=== PATIENT | female | born 1995 | race Native Hawaiian/Other Pacific Islander ===

== ENCOUNTER 2016-10-25 23:39 | Emergency (ER) | payer OTHER ==
[2016-10-25 23:45] VITALS: BP 108/74; PULSE 106; RESP 16; O2SAT 99
--- NOTE | 2016-10-26 01:05 | ED.REPORT ---
HPI-Fever Date of Service Oct 26, 2016 ED Provider: Dante Taylor DO 20-year-old female currently 38 weeks complaining of fever 1 day. Patient states she has not taken her temperature at home. She endorses fever and chills. She does not endorse other sick contacts at home denies nausea vomiting denies diarrhea endorses a headache with a nonproductive cough 2 days. She has been seen at [facility] and return to emergency department for additional evaluation. Patient a-febrile in room in no apparent distress. Flu swab negative. Nursing Notes Stated Complaint: FEVER/ Chief Complaint: General Complaint Nursing Notes Reviewed: Yes Allergies: Coded Allergies: No Known Allergies (Unverified , 10/25/16) General Time Seen by MD: 00:38 Chief Complaint Recent fever, Cough, non-productive Hx Obtained From: Patient Arrived By: Walk-in Onset Occurred: 1 day ago Review of Systems Constitutional: Reports: Fever, Denies: Chills Ears / Nose / Throat: Denies: Ear drainage bilateral, Nasal congestion, Sinus problem, Sore throat, Throat swelling Respiratory: Reports: Non-productive cough, Denies: Shortness of breath, Wheezing Cardiovascular: Denies: Chest pain GI: Denies: Abdominal pain, Constipation, Diarrhea, Mucousy stool, Nausea, Vomiting Female: Denies: Dysuria, Hematuria, Pelvic pain, Vaginal bleeding - abnl Neurologic: Denies: Abnormal movement, Change LOC, Dizziness, Focal weakness, Headache, Numbness, Spinning sensation, Vision change, Weakness Physical Exam Initial Vital Signs Vital Signs (First) Date Time Temp Pulse Resp B/P Pulse Ox O2 Delivery O2 Flow Rate FiO2 10/25/16 23:45 36.8 106 16 108/74 99 Head / Eyes: Atraumatic, Normocephalic, PERRL ENT: Mucous membranes moist, Conjunctiva normal, No scleral icterus Abdomen / GI: Soft (38 weeks ), Non-tender Back: No CVA tenderness Extremities: Neuro intact Psychiatric: Mood/affect normal General/Constitutional: Awake, Alert, No acute distress Respiratory / Chest: Atraumatic, Breath sounds NL, Breath sounds = bilat, No respiratory distress, No rhonchi, No wheezing, No stridor Cardiovascular: Heart rate NL, Regular rhythm, No murmurs Head / Eyes: Atraumatic, PERRL, EOMI, No photophobia ENT: Atraumatic, Airway patent, Mucous membranes moist, Tympanic membs NL, Ext aud canal NL, Nose exam NL, No sinus tenderness, No facial swelling, Gums/ dentition NL Mouth: Positive: Mucous membranes dry Interpretation & Diagnostics Lab Results Interpretation Result Diagram: 10/26/16 0116 10/26/16 0116 Test 10/26/16 01:16 10/26/16 01:25 White Blood Count 7.2th/mm3 (3.8-10.1) Red Blood Count 3.90mil/mm3 (3.90-5.20) Hemoglobin 10.9g/dL (12.0-15.6) Hematocrit 33.9% (35.0-46.0) Mean Corpuscular Volume 86.9fL (81-100) Mean Corpuscular Hemoglobin 27.9pg (27.0-35.0) Mean Corpuscular Hemoglobin Concent 32.2% (32.0-37.0) Red Cell Distribution Width 12.6% (12.3-15.4) Platelet Count 283bil/L (150-400) Neutrophils (%) (Auto) 61.3% (40-74) Lymphocytes (%) (Auto) 27.4% (14-46) Monocytes (%) (Auto) 9.6% (4-12) Eosinophils (%) (Auto) 1.0% (0-5) Basophils (%) (Auto) 0.1% (0-3) Sodium Level 139mEq/L (134-144) Potassium Level 4.2mEq/L (3.5-5.2) Chloride Level 102mEq/L (97-108) Carbon Dioxide Level 22mmol/L (18-29) Blood Urea Nitrogen 7mg/dL (6-20) Creatinine 0.40mg/dL (0.57-1.00) Estimat Glomerular Filtration Rate 289mL/min (>59) Glucose Level 80mg/dL (60-99) Calcium Level 8.8mg/dL (8.5-10.1) Total Bilirubin 0.3mg/dL (0.0-1.2) Aspartate Amino Transf (AST/SGOT) 13U/L (0-50) Alanine Aminotransferase (ALT/SGPT) 6U/L (0-32) Alkaline Phosphatase 147U/L (25-150) Total Protein 6.9g/dL (6.4-8.4) Albumin 3.2g/dL (3.4-5.0) Procalcitonin < 0.05ng/mL (See Comment) Hold Wheeler Top Tube Received (Received) Urine Color Yellow (YELLOW) Urine Appearance Cloudy (CLEAR,HAZY) Urine pH 6.5 (5.0-8.0) Urine Specific Ackerly 1.020 (1.003-1.035) Urine Protein Negativemg/dL (NEG,TRACE) Urine Glucose (UA) Negativemg/dL (NEGATIVE) Urine Ketones Negativemg/dL (NEGATIVE) Urine Occult Blood Negative (NEGATIVE) Urine Nitrite Negative (NEGATIVE) Urine Bilirubin Negative (NEGATIVE) Urine Urobilinogen Normalmg/dL (NORMAL) Urine Leukocyte Esterase Moderate (NEGATIVE) Urine RBC 0-2/hpf (0-2) Urine WBC 6-10/hpf (0-5) Urine Epithelial Cells Moderate/hpf (NONE-MOD) Urine Crystals None seen (NONE SEEN) Urine Bacteria Moderate/hpf (NONE-FEW) Urine Hyaline Casts None/lpf (NONE) Urine Granular Casts None seen (NONE SEEN) Urine Waxy Casts None seen (NONE SEEN) Urine Red Blood Cell Casts None seen (NONE SEEN) Urine White Blood Cell Casts None seen (NONE SEEN) Urine Mucus Present (None Seen) Urine Trichomonas None seen (NONE SEEN) Urine Yeast None (NONE SEEN) Urinalysis Comment None Urine Culture Reflexed Indicated Hold Urine Received (Received) Re-Eval/Medical Decision Med Decision/Clinical Course Patient was seen in [facility] and cleared prior to emergency department admission, flu swab negative. CBC CMP unremarkable. UA shows bacteria however it is contaminated with epithelial cells. Will hold off on abx pending urine culture. Patient was entirely asymptomatic during her ED visit, afebrile and physical exam was unremarkable. Patient instructed she may take OTC Tylenol and follow-up with her primary care provider as needed. Counseled Regarding: Diagnosis, Lab results, Need for follow-up, When/why to return to ED Discharge & Departure Shift Change Sign-Out Response to Therapy: Improved Impression: Primary Impression: Fever and chills Disposition: Home Discharge Condition All VS Reviewed: Yes Condition: Stable Additional Instructions: Blood work obtained showed no sign of infection, urinalysis is being cultured. The flu swab obtained was also negative If you find that you have a return of fevers, please do remember to take her temperature. If her temperature is above 100.4 you may take [id number] Tylenol as instructed on the packaging. Please do not exceed 3 g (3000 mg) of this medication in any 24-hour period. If you do have return of the fevers that does not respond to Tylenol he develop severe headaches nausea and vomiting dizziness visual changes chest pain shortness of breath abdominal pain please return to the ED for additional evaluation. Referrals: Karina Cedeno MD (PCP) Attending Statement I personally took a history performed a physical examination. No signs of sepsis on exam. Very benign physical examination. Labor and delivery as already seen and evaluated her. Her urine dip was negative. Our urinalysis today shows moderate bacteria but it is contaminated with a large number of epithelial cells. She is not having any dysuria, urinary frequency or flank pain. We will culture her urine sample because most likely this represents skin contaminants. Close follow-up is recommended. GRUPO TYLER DO Oct 26, 2016 01:05 Dante Taylor DO Oct 26, 2016 18:17
[2016-10-26 01:40] LABS: BASOPHILS % (AUTO) 0.1 % (0-3); MONOCYTES % (AUTO) 9.6 % (4-12); Mean Corpuscular Hemoglobin 27.9 pg (27.0-35.0); Mean Corpuscular Volume 86.9 fL (81-100); NEUTROPHILS % (AUTO) 61.3 % (40-74); Platelet Count 283 bil/L (150-400)
[2016-10-26 02:55] LABS: APPEARANCE,URINE CLOUDY (CLEAR,HAZY); COLOR,URINE YELLOW (YELLOW); PH,URINE 6.5 (5.0-8.0)
[2016-10-26 02:56] LABS: OCCULT BLOOD,URINE NEGATIVE (NEGATIVE); UROBILINOGEN,URINE NORMAL (NORMAL)
[2016-10-26 03:05] VITALS: BP 102/71; PULSE 192; RESP 18; O2SAT 99
== END 2016-10-26 03:07 | disposition home or self-care (01) ==
LOC: SED 23:39
DX: O26.893 Other specified pregnancy related conditions, third trimester (principal); R50.9 Fever, unspecified; R51 Headache; R05 Cough; Z3A.38 38 weeks gestation of pregnancy

== ENCOUNTER 2016-11-13 13:36 | Inpatient (IN) | payer OTHER ==
[~2016-11-13] VITALS: Ht 152.4 cm; Wt 72.1 kg
[2016-11-13] MEDS ORDERED: Methylergonovine 0.2 mg/mL Inj IM PRN ×2 (16:50→19:35)
[2016-11-13] MEDS ORDERED: Lactated Ringer's 1,000 ML IV PRN (16:50)
[2016-11-13] MEDS ORDERED: Hemorrhage Kit, Post Partum XX ONE ×2 (16:50→19:35)
[2016-11-13] MEDS ORDERED: Oxytocin 10 Unit/mL Inj IM PRN ×2 (16:50→19:35)
[2016-11-13] MEDS ORDERED: Oxytocin 30 Units/500 mL LR 30 UNITS in IV Premix 1 EACH IV PRN ×2 (16:50→19:35)
[2016-11-13] MEDS ORDERED: Carboprost 250 mCg/mL Inj IM PRN ×2 (16:50→19:35)
[2016-11-13] MEDS ORDERED: Sodium Chloride LOK Flush 10 mL Syringe IVFLUSH PRN (16:50)
[2016-11-13] MEDS ORDERED: Ondansetron 2 mg/mL 2 mL Inj IVPUSH PRN (16:50)
[2016-11-13 17:50] LABS: Mean Corpuscular Hemoglobin 27.7 pg (27.0-35.0); Mean Corpuscular Volume 86.4 fL (81-100)
[2016-11-13] MEDS ORDERED: Lactated Ringer's 1,000 ML IV SCH ×2 (17:58→19:31)
[2016-11-13] MEDS ORDERED: Lactated Ringer's 500 ML IV ONE (17:58)
[2016-11-13] MEDS ORDERED: fentaNYL 2 mCg/mL-Bupiv 0.125% 100 ML EPIDURAL SCH (18:00)
[2016-11-13] MEDS ORDERED: Atropine 1 mg/10 mL (Code) Syringe IVPUSH PRN (18:00)
[2016-11-13] MEDS ORDERED: EPHEDrine Sulfate 50 mg/mL Inj IVPUSH PRN (18:00)
[2016-11-13] MEDS ORDERED: Benzocaine (Dermoplast) 20% 60 Gm Spray TOPICAL PRN (19:35)
[2016-11-13] MEDS ORDERED: Measles-Mumps-Rubella Vaccine 0.5 mL Inj SUBQ ONE (19:35)
[2016-11-13] MEDS ORDERED: LANOlin HPA 7 Gm Ointment TOPICAL PRN (19:35)
[2016-11-13] MEDS ORDERED: Witch Hazel-Glycerin Pads TOPICAL PRN (19:35)
--- NOTE | 2016-11-13 22:23 | HP ---
[address] [address] HISTORY AND PHYSICAL PATIENT: CHASTITY CARVALHO : 1995 MR#: [id number] ADMIT: 11/13/2016 JOB ID: [id number] CHIEF COMPLAINT: Contractions. HISTORY OF PRESENT ILLNESS: This is a 21-year-old, G2, P1-0-0-1 female at 39+0 weeks gestation with EDC of November 20, 2016 admitted in active labor. She is dated by a 27 week ultrasound which was greater than 16 days off from her last menstrual period so it was changed for her to be based off of her ultrasound even though her record does have her as an EDC of November 04 which is inaccurate. is complicated by late entry to care at 27 weeks, positive Trichomonas and chlamydia with multiple positive tests in with verified treatment approximately three weeks ago at the pharmacy for the patient and her partner as well as rubella nonimmune status and [id number] age with a 27 week ultrasound with an EFW at the 1st percentile. The patient presented to labor and delivery complaining of regular contractions on the morning of the . She was checked and noted to be 2 cm dilated. She was rechecked an hour and a half later and had changed to 4. With further observation, she did change to 5 and she was at this point in time admitted in active labor. PAST MEDICAL HISTORY: Denies. PAST SURGICAL HISTORY: Please see record. OBSTETRICAL HISTORY: G1 was a full-term spontaneous vaginal delivery of a female infant, uncomplicated. SOCIAL HISTORY: Complicated by multiple positive Chlamydia tests and Trichomonas in this with pharmacist verified treatment as both in October 2015. MEDICATIONS: vitamins. ALLERGIES: No known drug allergies. PHYSICAL EXAMINATION: Objectively, the patient was noted to be ethan frequently and was admitted in active labor. An epidural was placed for pain relief and at the time of admission, her blood pressure was noted to be 130/81 pulse was 108, respiratory rate was 14 and temperature is 37.5. Her blood pressures were stable while she was on labor and delivery. In general, time of admission, she is awake, alert, oriented, in no acute distress. She was ethan uncomfortably and breathing through contractions until her epidural was placed. heart tones showed a 130s baseline, moderate variability and 15 x 15 accelerations present. On admission, she was ethan every 4-6 minutes. LABORATORY DATA: Showed a blood type of O positive, antibody screen negative, rubella nonimmune, hep B surface antigen negative, varicella immune, RPR nonreactive, HIV negative, and GBS negative. ASSESSMENT: This is a 21-year-old, G2, P1-0-0-1 female at 39+0 weeks gestation dated by a 27 week ultrasound with an EDC of November 20, 2016 not consistent with last menstrual period admitted in active labor. PLAN: At this point in time, we will continue expectant management. She is in active labor and an epidural was placed at her request. Due to her late entry to care, a urine drug screen was done as per hospital protocol. She will not be rechecked for chlamydia at this time as she was treated less then three weeks ago and may still have a positive screening test despite adequate treatment. The coremaker bench will be notified of her Chlamydia screen. At this point in time, we are anticipating a vaginal delivery. Will give MMR following delivery MTDD
--- NOTE | 2016-11-13 22:35 | OP ---
[address] [address] OPERATIVE REPORT PATIENT: CHASTITY CARVALHO : 1995 MR#: [id number] ADMIT: 11/13/2016 JOB ID: [id number] DATE OF SURGERY: 11/13/2016 PREOPERATIVE DIAGNOSIS(ES): 1. A 39 week intrauterine in active labor. 2. History of Trichomonas and Chlamydia this . 3. Rubella nonimmune status. 4. Late entry to care. 5. Small for gestational age at 27 week ultrasound. POSTOPERATIVE DIAGNOSIS(ES): 1. A 39 week intrauterine in active labor. 2. History of Trichomonas and Chlamydia this . 3. Rubella nonimmune status. 4. Late entry to care. 5. Small for gestational age at 27 week ultrasound. PROCEDURE PERFORMED: 1. Spontaneous vaginal delivery of a live born male infant, born on November [birth year], 2016 at 1908 hours weighing at 6 pounds 11 ounces or 3035 g with Apgars of 8 at one minute, 8 at 5 minutes. SURGEON: Ludivina Merida MD. ESTIMATED BLOOD LOSS: 400 cc. ANESTHESIA: Epidural at 5 cc of local anesthetic. FINDINGS: Live-born with spontaneous cry and spontaneous movement of all four extremities and second-degree perineal laceration. COMPLICATIONS: None apparent. INDICATIONS: This is a 21-year-old, G2, P1-0-0-1 female presented at 39 weeks of gestation dated by 27 week ultrasound with EDC of November 20, 2016 who is admitted in active labor. was complicated by positive Trichomonas and multiple positive Chlamydia tests in with most recent treatment in October 2016 confirmed by the pharmacist as well as late entry to care, small for gestational age based off of her 27 week ultrasound and rubella nonimmune status. LABORATORY DATA: Showed blood type O positive, antibody screen negative, rubella nonimmune, varicella immune, hep B surface antigen negative, RPR nonreactive, HIV negative, and GBS negative. She presented on the morning of the complaining of regular uterine contractions. She was checked and noted be 2 cm dilated. She changed to 4 cm dilated over the course of several hours and was admitted in active labor. An epidural was placed for pain relief and a urine drug screen was sent as per hospital protocol due to her late entry to care which returned within normal limits. heart was reactive and reassuring throughout her time on labor and delivery. She spontaneously ruptured on her own in the early evening of the and quickly progressed to complete by within 5 hours of admission. DESCRIPTION OF PROCEDURE: The patient was noted to be pushing spontaneously. She was checked and noted to be 8 cm dilated, and her cervix was not reducible. Within about 10 minutes of this time she continued to push spontaneously on her own as her epidural was not providing adequate pain relief and she did bring the 's vertex to the perineum. She was pushing and continued to push. The head did deliver spontaneously in the CONRAD position over an intact perineum. Nuchal cord was checked and none was noted. The anterior shoulder delivered easily, followed by the posterior shoulder and remainder of the infant was then easily delivered. The cord was then clamped and cut after a 60 second cord clamping delay. Pitocin was started per protocol. Cord blood was then obtained. The placenta delivered intact spontaneously and was passed off the table. Examination of the cervix and vaginal vault did not reveal any lacerations. Examination of the perineum showed a second-degree left degree laceration. After injection of 5 cc of local anesthetic, this laceration was then repaired with 3-0 Vicryl in the standard running fashion. The uterus was noted to be firm with fundal massage. The patient tolerated the procedure well, recovered in labor and delivery with her infant. All sponge, needle, and instrument counts were correct.
--- NOTE | 2016-11-14 05:17 | PCM.HPANE ---
Patient Data Date of Service: Nov 13, 2016 (4857) Surgeon Admitting Provider:Ludivina Merida MD Attending Provider:Ludivina Merida MD Primary Care Physician:Karina Cedeno MD Other Provider:Sumit Guerra Anesthesia Reason for Visit Term Early Labor TERM EARLY LABOR Ht/WT & BMI Height (Feet): 5 Weight (Kilograms): 72 Body Mass Index Allergies Coded Allergies: No Known Allergies (Unverified , 10/25/16) Diabetes History Hx Diabetes?: No MRSA MRSA: No Medications Hypertension Medication: No Home Meds Incl Beta Mustapha: No History History of ENT Problems?: No Teeth Condition: Missing Teeth Broken Teeth Tooth Decay Hx of Heart Problems?: No Cardiovascular History: Denies:: Chest Pain Congestive Heart Failure Hypertension Hx of Respiratory Problem?: No Respiratory History: Denies:: Tuberculosis Hx Neurologic Problems?: No Neurological History: Denies:: CVA Seizures Hx of GI Problems?: No Gastrointestinal History: Denies:: Gastroesphageal Reflux Hx of Problems?: No HX of Peritoneal Dialysis: No Female Hx: Positive for:: Currently Hx Musculoskeletal Problems?: No Hx of Psycho/Social Problems?: No Hx Any Other Health Problems?: No Hx Diabetes: No Hx Alcohol Use: NoHx Substance Use: No Smoking Status: Never Smoker Have You Smoked inLast 12 mo: No Stop/Bang Treated for Sleep Apnea?: No Do You Have a CPAP Machine?: No S-Snoring: Do You Snore Loudly: No T-Tired: feel tired, fatigued: No O-Obsered: Observed not breath: No P-Blood Pressure: treated: No B- Body Mass Index > 35 kg/m2: No A- Age over 50: No N- Neck Large Circumference: No G- Gender Male: No ADRIENNE Risk Assessment: Low Risk, <3 Yes Risk Assessment Category Category 1A: Patient has history of documented sleep apnea, and HAS NOT received any narcotic, sedative or anesthesia administration during this stay. Category 1B: Patient has history of documented sleep apnea, and HAS received any narcotic , sedative or anesthesia administration during this stay Category 2: Patient has SUSPECTED Obstructive Sleep Apnea, and HAS received any narcotic , sedative or anesthesia administration during this stay. Category 3: Patient has SUSPECTED Obstructive Sleep Apnea and HAS NOT received narcotic, sedative or anesthesia administration during this stay. Category 4: Outpatient in Procedural Areas with known sleep apnea or who screen positive for High Risk via the STOP/BANG questionnaire. Exam Exam General Appearance: Alert, Oriented X3, Cooperative, No Acute Distress HEENT/AIRWAY: MP 3, Neck Movement (FROM), Mouth Opening (3), Other (TMD<3) Lungs: Normal Air Movement Heart: Exam Unremarkable, Regular Rate/Rhythm, Normal S1, Normal S2, No Murmurs /Rubs/Gallops Meds/Labs/Diagnostics Admission Meds Current Medications Lactated Ringer's 500 ml @ 0 mls/hr Q0M ONCE IV Last administered on 11/13/16 18:01; Start 11/13/16 at 17:58; Stop 11/13/16 at 18:08; Status DC Lactated Ringer's (Lr) 1,000 ml @ 125 mls/hr Q8H IV Last administered on 17:10; Start 11/13/16 at 17:58; Stop 11/14/16 at 17:59 Labs Test 11/13/16 16:57 11/13/16 17:24 Hold Urine Received (Received) White Blood Count 11.0th/mm3 (3.8-10.1) Red Blood Count 3.97mil/mm3 (3.90-5.20) Hemoglobin 11.0g/dL (12.0-15.6) Hematocrit 34.3% (35.0-46.0) Mean Corpuscular Volume 86.4fL (81-100) Mean Corpuscular Hemoglobin 27.7pg (27.0-35.0) Mean Corpuscular Hemoglobin Concent 32.1% (32.0-37.0) Red Cell Distribution Width 13.1% (12.3-15.4) Platelet Count 296bil/L (150-400) Urine Opiates Screen Negative Urine Methadone Screen Negative Urine Barbiturates Screen Negative Urine Amphetamines Screen Negative Urine Benzodiazepines Screen Negative Urine Cocaine Metabolite Screen Negative Urine Cannabinoids Screen Negative Plan Impression Patient chart reviewed, patient interviewed and anesthestic plan with risks, benefits, and alternatives discussed, and informed consent obtained. ASA Physical Status: ASA2 Mod Systemic Disease Anesthetic Plan: Epidural Bene/Risks/Altern/Consents: Yes HP Complete Prior to Induction: Yes Ronny Forbes MD Nov 14, 2016 05:17
--- NOTE | 2016-11-14 05:17 | PCM.ANEP1 ---
Post Anesthesia Phase 1 PACU Phase 1 Assessment Date of Service: Nov 13, 2016 (5398) Anesthetic Administered: Epidural Level of Alertness: Awake, talking MARQUEZ's with Equal Strength: No Pain: No Pain Scale Score: 0 Nausea or Vomiting: No Oxygen Delivery: Room Air Lungs: Normal Air Movement Ronny Forbes MD Nov 14, 2016 05:17
--- NOTE | 2016-11-14 05:18 | PCM.ANEP2 ---
Post Anesthesia Evaluation ASA/CMS Post Anesthesia VS in Patient's Normal Range?: Yes Resp Stable; Airway Patent?: Yes CV Function & Hydration Stable: Yes Mental Status Recovered?: Yes Pain control Satisfactory?: Yes N/V Control Satisfactory?: Yes Ronny Forbes MD Nov 14, 2016 05:17
[2016-11-14 06:58] LABS: Mean Corpuscular Hemoglobin 27.5 pg (27.0-35.0); Mean Corpuscular Volume 86.4 fL (81-100)
--- NOTE | 2016-11-14 09:06 | PCM.PNOBPP ---
Subjective Date of Service Nov 14, 2016 Subjective 21 year old female G2, now P2 on Nov 13 without complication during delivery. complications were late entry into care at 27 weeks, positive trichomonas and chlamydia and small for gestational age with EFW at 1st percentile and rubella non immune. mother and baby doing well today, anticipate discharge today. Lochia: Normal Pain Management: PO pain meds Gastrointestinal: Good Appetite Group B Strep Results: Negative Rubella: Non-Immune Blood Type: O RH Type: Positive Labs Laboratory Tests 11/13/16 17:24: White Blood Count 11.0, Red Blood Count 3.97, Hemoglobin 11.0, Hematocrit 34.3, Mean Corpuscular Volume 86.4, Mean Corpuscular Hemoglobin 27.7, Mean Corpuscular Hemoglobin Concent 32.1, Red Cell Distribution Width 13.1, Platelet Count 296 Exam Vital Signs Vital Signs Vital Signs Date Time Temp Pulse Resp B/P Pulse Ox O2 Delivery O2 Flow Rate FiO2 11/14/16 05:17 Room Air Vital Signs: VS reviewed, stable Exam Abdomen: Fundus firm (2 finger breadths below the umbilicus) Lungs: Clear to Auscultation, Normal Air Movement Heart: Exam Unremarkable General: Alert, Oriented X3, Cooperative OB Post Assessment/Plan Assessment 21 female now. s/p with no complications. Problems: (1) Spontaneous vaginal delivery Plan: Continue supportive care. Anticipate discharge to home today. Status: Resolved ICD Code: O80 Pain Evaluation: Adequate Pain Control GRUPO TYLER DO Nov 14, 2016 06:36
--- NOTE | 2016-11-14 10:44 | PCM.DC.OB ---
Obstetrical Discharge Summary Date of Service Nov 14, 2016 Date of hospital admission Nov 13, 2016 at 16:44 Date of Discharge: Nov 14, 2016 Providers Admitting Physician: Ludivina Merida MD Primary Care Physician: Karina Cedeno MD Attending Physician: Ludivina Merida MD Diagnosis at Time of Discharge Spontaneous vaginal delivery Problems: (1) Spontaneous vaginal delivery Plan: Mother and baby doing well. Discharge to home in stable condition. Status: Acute ICD Code: O80 Brief History and Physical: History and Physical By Dr. Ludivina Merida MD 11/13/2016 "This is a 21-year-old, G2, P1-0-0-1 female at 39+0 weeks gestation with EDC of November 20, 2016 admitted in active labor. She is dated by a 27 week ultrasound which was greater than 16 days off from her last menstrual period so it was changed for her to be based off of her ultrasound even though her record does have her as an EDC of November 04 which is inaccurate. is complicated by late entry to care at 27 weeks, positive Trichomonas and chlamydia with multiple positive tests in with verified treatment approximately three weeks ago at the pharmacy for the patient and her partner as well as rubella nonimmune status and small-for- gestational age with a 27 week ultrasound with an EFW at the 1st percentile. The patient presented to labor and delivery complaining of regular contractions on the morning of the . She was checked and noted to be 2 cm dilated. She was rechecked an hour and a half later and had changed to 4. With further observation, she did change to 5 and she was at this point in time admitted in active labor." Hospital Course: Pt presented at 39 weeks in active labor. She had a spontaneous vaginal delivery of a live born male weighing 6lbs 11oz. No complications. Mother and baby both recovered well. Baby is breast feeding. Mother got Rubella immunization. Discharge Medications: iron, Vitamin C, Colace, ibuprofen Disposition Discharge to home in stable condition Follow-up plan Follow up in 6 weeks Discharge Diet: No restrictions Discharge Activity-General: Pelvic Rest for 6 weeks, Try not to overdue, Be up and about, Balance rest and activity, Activity as pain allows, Activity as energy allows, No lifting >15 pounds for 2 weeks Patient instructions Be sure to follow up in 6 weeks at [facility]. You have been given a prescription for ibuprofen to take as needed for pain. You have also been given a prescription for iron and Vitamin C supplement Iron can give you constipation so you have also been given a prescription for docusate to keep you regular. Pelvic rest for 6 weeks (nothing per vagina including intercourse, tampons) If you have a fever greater than 100.4, please call [facility]. There is always someone business solutions director to talk to. If you have an increase in bleeding, call [facility]. If you have a lot of bleeding suddenly, especially if you have symptoms of dizziness & weakness with it, get emergency help. When you see [facility] in two weeks, you will be informed of the results of all the labs. If you start experiencing extreme depression, especially if you feel that you are a danger to yourself or your family, seek emergency help. You have been through a lot -- BE SURE TO TAKE CARE OF YOURSELF. GRUPO TYLER DO Nov 14, 2016 10:43
[2016-11-14] MEDS ORDERED: IBUP800T28 PO (13:25)
[2016-11-14] MEDS ORDERED: DOCU-41 PO (13:25)
[2016-11-14] MEDS ORDERED: FERR-74 PO (13:25)
[2016-11-14] MEDS ORDERED: VIT500LI PO (13:25)
--- NOTE | 2016-11-14 13:29 | PCM.DIOB ---
Obstetrical Disch Instruction Date of Service: Nov 14, 2016 Dates of Hospitalization Date of Hospital Admission Nov 13, 2016 at 16:44 Providers Admitting Physician: Ludivina Merida MD Primary Care Physician: Karina Cedeno MD Attending Physician: Ludivina Merida MD Discharge Diagnosis Problems: (1) Spontaneous vaginal delivery Plan: Discharge to home. Status: Resolved ICD Code: O80 Diet Discharge Diet: No restrictions Activity Discharge Activity-General: Pelvic Rest for 6 weeks, Try not to overdue, Be up and about, Balance rest and activity, Activity as pain allows, Activity as energy allows, No lifting >15 pounds for 2 weeks Dressing and Incisional Care Hygiene: May shower, Perineal care, Witch Vicki pads Additional Instructions Discharge Instructions Be sure to follow up in 6 weeks at [facility]. You have been given a prescription for ibuprofen to take as needed for pain. You have also been given a prescription for iron and Vitamin C supplement Iron can give you constipation so you have also been given a prescription for docusate to keep you regular. Pelvic rest for 6 weeks (nothing per vagina including intercourse, tampons) If you have a fever greater than 100.4, please call [facility]. There is always someone travel registered nurse oncology to talk to. If you have an increase in bleeding, call [facility]. If you have a lot of bleeding suddenly, especially if you have symptoms of dizziness & weakness with it, get emergency help. When you see [facility] in two weeks, you will be informed of the results of all the labs. If you start experiencing extreme depression, especially if you feel that you are a danger to yourself or your family, seek emergency help. You have been through a lot -- BE SURE TO TAKE CARE OF YOURSELF. Additional Instructions Please take your prescription medications as indicated. Follow Up Plan Follow Up Plan Follow up in [facility] in 6 weeks Follow-up appointment: Weeks (6) Call your provider for: Fever or Chills, Shortness of breath, Heavy vaginal bleeding, Heavy bleeding, Epigastric pain, Excessive constipation, Vaginal discomfort, Red painful breasts GRUPO TYLER DO Nov 14, 2016 13:29
[2016-11-14 21:16] VITALS: BP 116/71; PULSE 91; RESP 16
== END 2016-11-14 21:59 | disposition home or self-care (01) | DRG 775 ==
LOC: FBCO 13:36 → FBC 16:44
PROVIDERS: ADMIT Obstetrics & Gynecology; ATTEND Obstetrics & Gynecology
PROC: 10E0XZZ Delivery of Products of Conception, External Approach (ICD-10-PCS; principal; 2016-11-13)
PROC: 0KQM0ZZ Repair Perineum Muscle, Open Approach (ICD-10-PCS; 2016-11-13)
DX: O70.1 Second degree perineal laceration during delivery (principal); Z37.0 Single live birth; Z3A.39 39 weeks gestation of pregnancy; O09.33 Supervision of pregnancy with insufficient antenatal care, third trimester